=== PATIENT | male | born 1950 | race Caucasian/White ===

== ENCOUNTER → 2019-08-11 | Outpatient (CLI) | payer BC ==
--- NOTE | 2019-08-11 08:44 | RAD ---
EXAM: Right shoulder, 3 views. HISTORY: Pain. COMPARISON: None. FINDINGS: 3 views of the right shoulder obtained. There is no fracture, dislocation or subluxation. IMPRESSION: No acute osseous finding. Electronically signed by: Catalina Mayers MD (08/11/2019 8:41 AM) [id number]
== END ==
LOC: DXRAD 08:12
PROVIDERS: ATTEND Physician Assistant
DX: M25.511 Pain in right shoulder (principal)
CPT/HCPCS: 73030

== ENCOUNTER → 2019-09-12 | Outpatient (CLI) | payer BC ==
--- NOTE | 2019-09-12 14:24 | RAD ---
PROCEDURE: WRIST 3V LEFT STUDY DATE: 09/12/2019 CLINICAL INDICATION / HISTORY: Reason: S/P FALL, WRIST PAIN / Spl. Instructions: / History: . TECHNIQUE: Left wrist 3 views. AP, lateral, oblique views. COMPARISON: None FINDINGS: The radiocarpal and intracarpal relationships are maintained. There is no acute fracture or dislocation. However, there is a chronic appearing fracture of the ulnar styloid process with mild overlying soft tissue swelling. The bone density is normal. No other soft tissue abnormality is seen. IMPRESSION: Ulnar styloid process deformity compatible with a chronic appearing fracture. No acute osseous abnormality noted. There is overlying soft tissue swelling. Consider MRI in further evaluation to assess possible triangular fibrocartilage injury. Electronically signed by: Isatu Mcghee MD (09/12/2019 2:20 PM) [id number]
== END | disposition home or self-care (01) ==
LOC: RAD 10:38
PROVIDERS: ATTEND Physician Assistant
DX: M25.532 Pain in left wrist (principal); M21.932 Unspecified acquired deformity of left forearm; M79.89 Other specified soft tissue disorders
CPT/HCPCS: 73110